=== PATIENT | male | born 1945 | race Caucasian/White ===

== ENCOUNTER 2017-03-08 11:30 | Emergency (ER) | payer OTHER ==
[~2017-03-08] VITALS: Ht 177.8 cm; Wt 117.9 kg
[2017-03-08] MEDS ORDERED: LABETALOL HCL 5 MG/ML ML 20ML VIAL IV ONE (13:15)
[2017-03-08 13:20] VITALS: BP 166/67
[2017-03-08 13:33] LABS: Albumin 2.8 g/dL (3.4-5.0); BUN/Creatinine Ratio 24.9; Bilirubin, Total 0.3 mg/dL (0.2-1.0); Calcium 8.2 mg/dL (8.5-10.1); Potassium 4.6 mmol/L (3.5-5.1); Total Protein 6.2 g/dL (6.4-8.2)
[2017-03-08 13:34] LABS: Basophils # (auto) 0 uL; Basophils % (auto) 0.4 % (0.0-2.0); Eosinophils # (auto) 0.2 uL; Eosinophils % (auto) 1.7 % (0.0-7.0); Hematocrit 38.6 % (41.0-53.0); Hemoglobin 12.1 g/dL (13.5-17.5); Lymphocytes # (auto) 1.7 uL; Lymphocytes % (auto) 13.1 % (10.0-50.0); Mean Corpuscular Hemoglobin 28.7 pg (28.0-32.0); Mean Corpuscular Hgb Conc. 31.4 g/dL (32.0-36.0); Mean Corpuscular Volume 91.4 fL (80.0-100.0); Monocytes # (auto) 0.7 uL; Monocytes % (auto) 5.8 % (0.0-12.0); Neutrophils # (auto) 10.2 uL; Platelet Count (auto) 153 10^3/uL (140-450); Red Blood Cells 4.22 10^6/uL (4.5-5.90); Red Cell Distribution Width 15.2 % (11.8-14.3); White Blood Cell 12.9 10^3/uL (4.4-10.8)
[2017-03-08 13:35] LABS: INR 0.91 (0.9-1.15); Prothrombin Time 9.9 sec (9.37-12.3)
== END 2017-03-08 12:23 | disposition short-term general hospital (02) ==
LOC: EDBD 11:30 → ER 11:30
DX: I60.9 Nontraumatic subarachnoid hemorrhage, unspecified (principal); I11.0 Hypertensive heart disease with heart failure; I50.9 Heart failure, unspecified; E11.9 Type 2 diabetes mellitus without complications; Z88.8 Allergy status to other drugs, medicaments and biological substances
CPT/HCPCS: 36415; 70450; 71045; 73502; 80053; 83880; 84484; 85025; 85610; 85730; 93005